=== PATIENT | male | born 1985 | race Caucasian/White ===

== ENCOUNTER 2020-12-18 09:47 | Observation (INO) | payer OTHER ==
[~2020-12-18] VITALS: Ht 170.2 cm; Wt 133.8 kg
--- NOTE | ~2020-12-18 | O ---
[facility] [place] [address] OPERATIVE REPORT Name: VALERIA ARELLANO Room #: 434-P [facility] M..#: [id number] Admission: 12/18/20 Attend Phys: Leobardo Pink MD Discharge: Date of : 83 Report #: [id number] THIS REPORT FOR: cc: FAM - Family physician unknown FAM - Family physician unknown Leobardo Pink MD ~ DATE OF SERVICE: 12/18/2020 PREOPERATIVE DIAGNOSES: 1. Ventral hernia containing 2 separate defects above the umbilicus. 2. Left inguinal hernia. 3. Ventral hernia with incarcerated fat, with incarcerated omentum. POSTOPERATIVE DIAGNOSES: 1. Ventral hernia containing 2 separate defects above the umbilicus. 2. Left inguinal hernia. 3. Ventral hernia with incarcerated fat, with incarcerated omentum. PROCEDURE PERFORMED: 1. Laparoscopic repair of ventral hernia with Ventralight mesh 6-inch yocha dehe with ST and echo. 2. Laparoscopic properitoneal repair of left inguinal hernia with mesh. 3. Laparoscopic repair of incarcerated ventral hernia. COMPLICATIONS: None. ESTIMATED BLOOD LOSS: 10 mL SURGEON: Leobardo Pink MD ANESTHESIA: General anesthesia. DESCRIPTION OF PROCEDURE: With the patient under general anesthesia, abdomen is prepped and draped in sterile fashion. Worthy catheter was placed before this. IV antibiotic was administered. Timeout was performed. A 0.25% Marcaine was used to anesthetize the skin. Incision was made adjacent to the umbilicus about 2.5 cm in size. Anterior rectus fascia was identified adjacent to the umbilicus. The anterior fascia was incised transversely. The muscle was spread. The space between the rectus muscle and the posterior fascia was isolated. A balloon trocar was placed through the space. CO2 was placed. Under visualization, a 5 mm trocar was placed about 2 inches below the umbilicus at the midline. This was placed into the properitoneal space. Rest of the properitoneal space was opened up using cautery and blunt dissection. After the midline was opened up, a second 5 mm trocar was placed about an inch and half below the first one slightly to the right of the midline. No direct defect identified. The ____ vessel was identified, preserved from harm. The space [address] [address] OPERATIVE REPORT Name: VALERIA ARELLANO Room #: 434-P [facility] M.R.#: [id number] Admission: 12/18/20 Attend Phys: Leobardo Pink MD Discharge: Date of : 83 Report #: [id number] lateral to the inferior ____ vessel was opened. The abdominal wall was isolated. The cord structure was found. There is a small indirect hernia sac found. The peritoneum was freed off of the cord structure and reduced completely off the cord. There is a large lipoma found lateral to the cord. This was going into the internal ring. This was reduced back in the properitoneal space. After this was done, the ring was noted to be prominent in size. A properitoneal mesh was then placed. This is a Medtronic mesh that measures 10 x 15 cm. This has a 3D shape to it. The mesh was placed through the 11 mm trocar. This was opened up in the properitoneal space and this was then tacked lateral superiorly to the wall, inferomedially to Rogelio's ligament and then superomedially to the rectus muscle. The CO2 and trocars were then removed from the properitoneal space. The ventral hernia was felt to be best done laparoscopically, intraperitoneal. A cut down incision was made in the left upper quadrant after incising through the skin about 2.5 cm transverse incision. Anterior fascia was identified. This was incised transversely. An 0 Vicryl suture placed on the fascia for retraction and muscle was then rectus muscle was then spread. The posterior fascia was then grasped and hemostats were placed on it. This was opened between the hemostats. Fascial edges were identified. The peritoneum was located slightly posterior. I was able to open that up with a hemostat. A stay suture was placed on the posterior fascia also. Balloon trocar was then placed through the space. Two 5 mm trocars placed in the left lateral abdomen. The ventral hernia was found. There are 2 incarcerated lobulated fat up inside the hernia. The fat content was scarred in, the scar tissue along the edges was cauterized and divided. The fat was then able to be reduced out of the more superior defect. This was about 1.5 cm in size. It does go out quite a bit into the subcutaneous tissue. There was a second hole identified. They are by about a centimeter. These are rather unusual hernias. The fat was also reduced out of this after dividing the scar tissue. The fat is healthy and no bleeding was identified and this was evaluated. The falciform ligament did have to be freed to allow the mesh to be sitting flat against the wall. A 6-inch yocha dehe Ventralight mesh with ST and echo technology was used. This was placed through the cutdown site directly into the abdomen. This was then opened up. The balloon tubing was then brought out right adjacent to the fascia defect. The balloon was inflated. The mesh was then pressed up against the wall and SorbaFix was then used to tack the mesh in place. Peripherally the mesh placed a little under 1.5 cm distance apart. No significant bleeding was encountered. The rest of the mesh was also tacked more internally using the SorbaFix, 30 tackers were used. The balloon was then deflated and then removed through the 11 mm trocar without difficulty. A 5 mm scope was used to facilitate this. Transfascial suture with the 2 Chula-Rebel suture was then used. This was placed at 12, 3, 6 and 9 o'clock positions. A small 2 mm incision was made. The suture retrieval was placed through the subcu through the fascia, through the mesh, grabbing 1 stitch and then through the same skin incision, [address] [address] OPERATIVE REPORT Name: ARELLANOVALERIA Room #: 434-P [facility] MRadhaRRadha#: [id number] Admission: 12/18/20 Attend Phys: Leobardo Pink MD Discharge: Date of : 83 Report #: [id number] through the fascia lateral to the mesh. The second end of the stitch was brought out through that and the Chula-Rebel suture was then tied down. This was performed in all 4 sites. No bleeding was encountered. The omental fat that was stuck was also reevaluated and was hemostatic. The falciform ligament was hemostatic. Trocars then removed. CO2 was then evacuated. Fascial defect at the cutdown site was closed with 0 PDS [id number] x2 in the posterior fascia and then also 0 PDS in the anterior fascia. The laparoscopic inguinal hernia repair, anterior fascia defect was closed with 0 PDS [id number] x2 also. Skin was irrigated. The trocar site was closed with 5-0 PDS. The transfascial suture and the retrievable ____ balloon was closed with Dermabond. Dermabond was applied also to the trocar sites. Band-Aid was used for dressing. The patient tolerated the procedure well, ____. Worthy was then removed. The patient was taken to recovery room in good condition. By: [id number] Leobardo Pink MD /nt
[~2020-12-18 09:47] MED LIST: AJOVY225 MG/1.5 SUBQ; BUSPIRONE HCL5 MG PO; IMITREX100 MG PO; LISINOPRIL10 MG PO; OMEPRAZOLE40 MG PO; ULTRAM 50MG TAB50 MG PO
[2020-12-18 11:38] VITALS: BP 144/80
[2020-12-18] MEDS ORDERED: HYDROCODON-ACE1 EAC7 PO (15:55)
[2020-12-18 16:45] VITALS: BP 109/65
[2020-12-18 17:00] VITALS: BP 111/69
[2020-12-18 17:30] VITALS: BP 122/74
[2020-12-18 18:00] VITALS: BP 111/75
[2020-12-18 18:58] VITALS: BP 144/73
--- NOTE | 2020-12-18 19:36 | NUR ---
Patient admitted from PACU, post:op from hernia repair. Report given at 1630. A&O*4, abdominal binder with 11 bandages. Patient is on a regular diet as tolerated. Patient ambulatory with standby. Patient had morales pre-op and was removed in OR prior to start. Patient has had the urge to void but has not been able to urinate. Patient c/o of abdominal pain with PO hydrocodone given at 1800. 20G IV placed in Left forearm, running D5 1/2 with K at 80ml/hr for 12.5 hours. Patient has bilateral ACDs on. VS: P:106, R:19, BP:122/74, O2:94% on room air, and T:36.5. Admitting assessment completed by whiteprinting machine operator nurse. Pain management is patients goal/concern for this evening. Will continue to monitor patient.
--- NOTE | 2020-12-19 03:16 | NUR ---
RECEIVED CARE OF THIS PATIENT AT 1900. PATIENT ALERT AND ORIENTED X4. PATIENT IS NOT FALL RISK BY SCORE BUT ASKED PATIENT TO CALL WHEN GETTING UP THE FIRST FEW TIMES D/T THE DIFFICULTY GETTING OUT OF BED. HAS 11 BANDAIDS UNDER AN ABD BINDER. IV FLUIDS INFUSING. C/O PAIN, MED GIVEN. SLEPT OFF AND ON DURING NIGHT.
[2020-12-19 04:18] VITALS: BP 115/75
[2020-12-19 07:46] VITALS: BP 121/69
--- NOTE | 2020-12-19 08:32 | NUR ---
Assumed care of pt at 0700. Pt a&ox4. C/o and pain. Prn pain meds administered. IVF infusing. Abd binder in place. Pt will discharge to home today. Call light within reach. Will continue to monitor.
[2020-12-19 09:52] VITALS: BP 121/69
== END 2020-12-19 12:08 | disposition home or self-care (01) ==
LOC: OR 09:47 → 4S 16:27 → OR 22:54 → 4S 22:54
PROVIDERS: ADMIT Surgery; ATTEND Surgery
DX: K43.9 Ventral hernia without obstruction or gangrene (principal); K40.30 Unilateral inguinal hernia, with obstruction, without gangrene, not specified as recurrent; I10 Essential (primary) hypertension; Z20.822 Contact with and (suspected) exposure to COVID-19; Z79.899 Other long term (current) drug therapy; J45.909 Unspecified asthma, uncomplicated
CPT/HCPCS: 50010; 50101; 50386; 50455; 50555; 50687; 50886; 50978; 52265; 53065; 53307; 54022; 54118; 56525; 56526; 56530; 57092; 58574; 59028; 62110; 62900; 70005